=== PATIENT | female | born 1990 | race Caucasian/White ===

== ENCOUNTER 2017-11-30 00:04 | Inpatient (IN) | payer OTHER ==
[~2017-11-30] VITALS: Ht 162.6 cm; Wt 118.0 kg
--- NOTE | ~2017-11-30 | OR ---
[facility] [address] [place] [address] Draft DATE OF OPERATION: 12/01/2017 SURGEON: Billy Landa DO PREOPERATIVE DIAGNOSIS: Obesity complicating . POSTOPERATIVE DIAGNOSIS: Obesity complicating . PROCEDURE PERFORMED: Primary low transverse section. DICTATION ENDS HERE Billy Landa DO JDW/MODL /[id number] Copies: ~ PATIENT NAME: SAVI LIVINGSTON CHRISTOPHER OPERATIVE REPORT DATE OF : [birth year] REPORT #: [id number] PHYSICIAN: BILLY LANDA DO PCP: BILLY LANDA DO REPORT IS CONFIDENTIAL AND NOT TO BE RELEASED WITHOUT AUTHORIZATION
--- NOTE | 2017-12-01 11:03 | NUR ---
12/01/17 1103 Macie Soto 1038- PT TO ROOM #106 AWAKE AND TALKING WITH STAFF. PT IS ABLE TO MOVE HER TOES AND REPORTS ABD PAIN. RATES IT A 2/10. DENIES WANTING PAIN MEDICATION. PT REPORTS NO NAUSEA OR DIZZINESS. IV SITE INFUSING WELL WITH LR AND PITOCIN. 1040- DR. DURÁN AT THE BEDSIDE ACCESSING BABY. 1046- BABY SKIN TO SKIN WITH MOM. PT CONTINUES TO REPORT NO NAUSEA OR DIZZINESS. PAIN REMAINS A 2/10. 1102- BABY LAYING ON MOM'S CHEST WITH FATHER AT THE BEDSIDE. PT REPORTS NO NAUSEA OR DIZZINESS. CONTINUES TO RATE PAIN A 2/10. DENIES WANTING ANYTHING FOR PAIN AT THIS TIME. EDUCATED PT TO NOTIFY STAFF IF PAIN BECOMES WORSE AND SHE NEEDS MEDICATIONS.
--- NOTE | 2017-12-02 08:40 | PR ---
[facility] [address] [facility] [place], [place] [address] Signed PP Progress Notes Datetime Report Generated by CPN: 12/02/2017 08:40 SUBJECTIVE: [id number] Pain: Within normal limits Nausea/Vomiting: Denies Flatus: Yes Vital Signs: [id number] Vital Signs: Reviewed; Within Normal Limits EXAM: [id number] Cardiovascular: Normal Respiratory: Normal Abdomen/Uterus: Abnormal Lochia: Normal Vulva/Perineum: Not Done Breasts: Not Done CVA Tenderness: Not Done Extremities: Normal Incision: Normal Progress: Normal Exam Comments: Abdomen with active BS. Fundus firm, NT @ U-1. H/H 10.8/32.3, WBC 12.3, plat 205k IMPRESSION/PLAN/PROCEDURES: [id number] Impression: Normal progression Plan: Continue present management Progress Notes: Doing well. Will continue present care. Signing Physician: Tiffanie Harkins MD Copies: ~ *Electronically Signed* 12/02/17839 TIFFANIE HARKINS MD PATIENT NAME: SAVI LIVINGSTON PROGRESS NOTE DATE OF : [birth year] PHYSICIAN: TIFFANIE HARKINS MD RPT #: [id number] REPORT IS CONFIDENTIAL AND NOT TO BE RELEASED WITHOUT AUTHORIZATION
--- NOTE | 2017-12-02 08:47 | PR ---
[facility] [address] [facility] [place], [place] [address] Signed PP Progress Notes Datetime Report Generated by CPN: 12/02/2017 08:46 SUBJECTIVE: [id number] Pain: Within normal limits Nausea/Vomiting: Denies Flatus: Yes Vital Signs: [id number] Vital Signs: Reviewed; Within Normal Limits EXAM: [id number] Cardiovascular: Normal Respiratory: Normal Abdomen/Uterus: Abnormal Lochia: Normal Vulva/Perineum: Not Done Breasts: Not Done CVA Tenderness: Not Done Extremities: Normal Incision: Normal Progress: Normal Exam Comments: Abdomen with active BS. Fundus firm, NT @ U-1. H/H 9.8/29.3, WBC 8.4, plat 166k (correction) IMPRESSION/PLAN/PROCEDURES: [id number] Impression: Normal progression Plan: Continue present management Progress Notes: Doing well. Will continue present care. Signing Physician: Mindy Harkins MD Copies: ~ *Electronically Signed* 12/02/17 0846 MINDY HARKINS MD PATIENT NAME: MIKISAVI LEE PROGRESS NOTE DATE OF : [birth year] PHYSICIAN: MINDY HARKINS MD RPT #: [id number] REPORT IS CONFIDENTIAL AND NOT TO BE RELEASED WITHOUT AUTHORIZATION
--- NOTE | 2017-12-03 08:56 | PR ---
[facility] [address] [facility] [place], [place] [address] Signed PP Progress Notes Datetime Report Generated by CPN: 12/03/2017 08:56 SUBJECTIVE: [id number] Pain: Within normal limits Nausea/Vomiting: Denies Flatus: Yes Vital Signs: [id number] Vital Signs: Reviewed; Within Normal Limits EXAM: [id number] Cardiovascular: Not Done Respiratory: Not Done Abdomen/Uterus: Abnormal Lochia: Normal Vulva/Perineum: Not Done Breasts: Not Done CVA Tenderness: Not Done Extremities: Normal Incision: Normal Progress: Normal Exam Comments: Abdomen with active BS. Fundus firm, NT @ U-1. IMPRESSION/PLAN/PROCEDURES: [id number] Impression: Normal progression Plan: Remove laura; Discharge Progress Notes: Doing well. She is ready for D/C. Signing Physician: Mindy Harkins MD Copies: ~ *Electronically Signed* 12/03/17 0856 MINDY HARKINS MD PATIENT NAME: SAVI LIVINGSTON CHRISTOPHER PROGRESS NOTE DATE OF : [birth year] PHYSICIAN: MINDY HARKINS MD RPT #: [id number] REPORT IS CONFIDENTIAL AND NOT TO BE RELEASED WITHOUT AUTHORIZATION
== END 2017-12-03 13:30 | disposition home or self-care (01) | DRG 766 ==
LOC: FBC 00:04
PROVIDERS: ADMIT Obstetrics & Gynecology
PROC: 10907ZC Drainage of Amniotic Fluid, Therapeutic from Products of Conception, Via Natural or Artificial Opening (ICD-10-PCS; 2017-11-30)
PROC: 3E0P7VZ Introduction of Hormone into Female Reproductive, Via Natural or Artificial Opening (ICD-10-PCS; 2017-11-30)
PROC: 0U7C7ZZ Dilation of Cervix, Via Natural or Artificial Opening (ICD-10-PCS; 2017-11-30)
PROC: 10D00Z1 Extraction of Products of Conception, Low, Open Approach (ICD-10-PCS; principal; 2017-12-01 09:13)
DX: O64.8XX0 Obstructed labor due to other malposition and malpresentation, not applicable or unspecified (principal); O99.214 Obesity complicating childbirth; E66.01 Morbid (severe) obesity due to excess calories; Z3A.40 40 weeks gestation of pregnancy; Z37.0 Single live birth; O69.81X0 Labor and delivery complicated by cord around neck, without compression, not applicable or unspecified; O62.1 Secondary uterine inertia
CPT/HCPCS: 01960; 01961; 36415; 85027; C1763; J0690; J1100; J1885; J2274; J2370; J2405; J2590; J3010; J7120

== ENCOUNTER 2023-04-25 11:54 | Emergency (ER) | payer OTHER ==
[~2023-04-25] VITALS: Ht 162.6 cm; Wt 117.9 kg
[2023-04-25 12:20] LABS: BASOPHILS 0.6 % (0-2); BILIRUBIN, URINE NEGATIVE (negative); BLOOD/HGB, URINE MODERATE (Negative); EOSINOPHILS 0.7 % (0-6); HEMATOCRIT 39.1 % (35.0-50.0); HEMOGLOBIN 13.4 g/dL (12.0-18.0); KETONE, URINE NEGATIVE (Negative); LEUK ESTERASE, URINE TRACE (negative); LYMPHOCYTES 33.8 % (24-44); MCH 28.8 (27-36); MCHC 34.2 g/dl (30-36); MCV 84.2 fl (81-99); MONOCYTES 7.5 % (0-12); NEUTROPHILS 57.4 % (39-80); NITRITE, URINE NEGATIVE (negative); PLATELET COUNT 281 K/uL (140-440); RBC 4.64 M/ul (4.3-5.7); RDW 13.2 (10.5-15.0)
[2023-04-25 12:28] LABS: BACTERIA, URINE 1+ /hpf (negative); CASTS, URINE NONE SEEN \\lpf; COLLECTION TYPE, URINE CLEAN CATCH; CRYSTALS, URINE NONE SEEN (0-1+); EPITHELIAL CELLS, URINE SQUAMOUS 4+ /lpf (0-1+); REFLEX CULTURE, URINE No (No)
[2023-04-25 12:35] LABS: ALBUMIN 3.5 g/dL (3.4-5.0); ALBUMIN/GLOBULIN RATIO 0.88 (1.1-2.4); BILIRUBIN, TOTAL 0.3 ng/dL (0.2-1.0); BUN/CREATININE RATIO 15.38 (6.0-28.6); CALCIUM 8.8 mg/dL (8.5-10.1); CREATININE, SERUM 0.78 mg/dL (0.55-1.02); PROTEIN, TOTAL 7.5 g/dL (6.4-8.2)
[2023-04-25] MEDS ORDERED: HYDROCODON-ACE1 EA10 PO (15:33)
[2023-04-25] MEDS ORDERED: ONDANSETRON ODT4 MG PO (15:33)
[2023-04-25 15:43] VITALS: BP 121/82
== END 2023-04-25 15:40 | disposition home or self-care (01) ==
LOC: ED 11:54
PROVIDERS: Emergency Medicine
DX: K63.89 Other specified diseases of intestine (principal)
CPT/HCPCS: 36415; 74177; 76705; 76830; 76856; 80053; 81001; 83690; 84703; 85025; 96361; 96375; 99284-25; J1885; J2405; J7030; Q9967